=== PATIENT | male | born 1985 | race Caucasian/White ===

== ENCOUNTER 2017-02-22 21:19 | Emergency (ER) | payer BC ==
[~2017-02-22] VITALS: Ht 172.7 cm; Wt 139.7 kg
[2017-02-22 21:47] VITALS: BP 144/73
[2017-02-22 21:54] LABS: BASO # 0.1 x10^3/uL (0.0-0.2); BASO % 1 % (0-3); EOS % 1 % (0-3); HEMATOCRIT 40.1 % (39.0-53.0); HEMOGLOBIN 13.3 g/dL (13.0-17.5); LYMPH # 2.5 x10^3/uL (1.0-4.8); LYMPH % 16 % (24-48); MEAN CORPUSCULAR HEMOGLOBIN 29 pg (25-35); MEAN CORPUSCULAR HGB CONC 33 g/dL (31-37); MEAN CORPUSCULAR VOLUME 86 fL (79-100); MONO % 8 % (0-9); NEUT % 75 % (31-73); PLATELET COUNT 310 x10^3/uL (140-400); RED BLOOD COUNT 4.64 x10^6/uL (4.30-5.70); RED CELL DISTRIBUTION WIDTH 14.3 % (11.5-14.5); WHITE BLOOD COUNT 15.9 x10^3/uL (4.0-11.0)
[2017-02-22] MEDS ORDERED: ASPIRIN CHEWABLE 81 MG TABLET. PO ONE (22:00)
[2017-02-22 22:08] LABS: CALCIUM 9.5 mg/dL (8.5-10.1); GFR 87.2; POTASSIUM 3.7 mmol/L (3.5-5.1)
--- NOTE | 2017-02-22 22:45 | PHYS DOC ---
Past Medical History Past Medical History: GERD Past Surgical History: Other Additional Past Surgical Histo: L knee scope Alcohol Use: Occasionally Drug Use: None Adult General Chief Complaint Chief Complaint: CHEST PAIN HPI HPI Patient is a 31 year old m who presents with chest pain since 0300 this am. the pain radiates to the back. it is a sharp shooting pain. no alleviating factors. no hx of dm. Hx of htn and is quite hypertensive here. He denies ever smoking. he denies cough fevers or chills. ROS neg for abd pain, soa, n/v, fevers or chills. All other review of systems is negative unless otherwise noted in history of present illness. ED course: 31 yo F presenting to the ED today with chest pain. Pt was hypertensive here in the ED but without evidence of end organ dysfunction. Chest xray concerning for possible PNA. labs showed leukocytosis. neg trop. Patient's hypertension improved without any intervention. 140s on reexamination. Pt was given ASA in the ED. ekg unremarkable. pt d/melchor home on azithro to f/u with pcp in 2-3 days. The patient was then discharged home in stable condition to follow up with their primary care physician over the next 2- 3 days. They were to return if their symptoms worsened or if they were concerned for any reason. [id number] discharge instructions and return precautions were given. Patient's questions were answered to their satisfaction. Patient is comfortable plan. Review of Systems Review of Systems SEE ABOVE. Current Medications Current Medications Current Medications Medications (Trade) Dose Ordered Sig/[place] Start Time Stop Time Status Last Admin Dose Admin Aspirin (Children'S Aspirin) 324 mg 1X ONCE 02/22/17 22:00 02/22/17 22:22 DC 02/22/17 21:49 324 MG Allergies Allergies Allergies Coded Allergies Type Severity Reaction Last Updated Verified acetaminophen Allergy Mild nausea 02/22/17 Yes oxycodone Allergy Mild nausea 02/22/17 Yes Physical Exam Physical Exam SEE ABOVE Constitutional: Well developed, well nourished, no acute distress, non-toxic appearance. [] HENT: Normocephalic, atraumatic, bilateral external ears normal, oropharynx moist, no oral exudates, nose normal. [] Eyes: PERRLA, EOMI, conjunctiva normal, no discharge. [] Neck: Normal range of motion, no tenderness, supple, no stridor. [] Cardiovascular:Heart rate regular rhythm, no murmur [] Lungs & Thorax: Bilateral breath sounds clear to auscultation [] Abdomen: Bowel sounds normal, soft, no tenderness, no masses, no pulsatile masses. [] Skin: Warm, dry, no erythema, no rash. [] Back: No tenderness, no CVA tenderness. [] Extremities: No tenderness, no cyanosis, no clubbing, ROM intact, no edema. [] Neurologic: Alert and oriented X 3, normal motor function, normal sensory function, no focal deficits noted. [] Psychologic: Affect normal, judgement normal, mood normal. [] Current Patient Data Vital Signs Vital Signs Date Time Temp Pulse Resp B/P (MAP) Pulse Ox O2 Delivery O2 Flow Rate FiO2 02/22/17 21:47 62 20 144/73 (96) 99 Room Air 02/22/17 21:20 98.3 98.3 Lab Values Laboratory Tests Test 02/22/17 21:30 White Blood Count 15.9 x10^3/uL (4.0-11.0) H Red Blood Count 4.64 x10^6/uL (4.30-5.70) Hemoglobin 13.3 g/dL (13.0-17.5) Hematocrit 40.1 % (39.0-53.0) Mean Corpuscular Volume 86 fL (79-100) Mean Corpuscular Hemoglobin 29 pg (25-35) Mean Corpuscular Hemoglobin Concent 33 g/dL (31-37) Red Cell Distribution Width 14.3 % (11.5-14.5) Platelet Count 310 x10^3/uL (140-400) Neutrophils (%) (Auto) 75 % (31-73) H Lymphocytes (%) (Auto) 16 % (24-48) L Monocytes (%) (Auto) 8 % (0-9) Eosinophils (%) (Auto) 1 % (0-3) Basophils (%) (Auto) 1 % (0-3) Neutrophils # (Auto) 11.8 x10^3uL (1.8-7.7) H Lymphocytes # (Auto) 2.5 x10^3/uL (1.0-4.8) Monocytes # (Auto) 1.3 x10^3/uL (0.0-1.1) H Eosinophils # (Auto) 0.1 x10^3/uL (0.0-0.7) Basophils # (Auto) 0.1 x10^3/uL (0.0-0.2) Sodium Level 140 mmol/L (136-145) Potassium Level 3.7 mmol/L (3.5-5.1) Chloride Level 103 mmol/L (98-107) Carbon Dioxide Level 28 mmol/L (21-32) Anion Gap 9 (6-14) Blood Urea Nitrogen 10 mg/dL (8-26) Creatinine 1.0 mg/dL (0.7-1.3) Estimated GFR (Cockcroft-Gault) 87.2 Glucose Level 125 mg/dL (70-99) H Calcium Level 9.5 mg/dL (8.5-10.1) Troponin I Quantitative < 0.017 ng/mL (0.000-0.055) Laboratory Tests 02/22/17 21:30 Laboratory Tests 02/22/17 21:30 EKG EKG [] Radiology/Procedures Radiology/Procedures [] Course & Med Decision Making Course & Med Decision Making Pertinent Labs and Imaging studies reviewed. (See chart for details) [] Dragon Disclaimer Dragon Disclaimer This electronic medical record was generated, in whole or in part, using a voice recognition dictation system. Departure Departure Impression: Primary Impression: Chest pain Disposition: 01 HOME, SELF-CARE Condition: STABLE Referrals: NO PCP (PCP) SPARKLE RODRIGUEZ MD Patient Instructions: Chest Pain (Nonspecific) Scripts Hydrocodone Bit/Acetaminophen (HYDROCODONE-APAP 5-325 ) 1 Each Tablet 1 TAB PO PRN Q6HRS Y for PAIN, #8 TAB 0 Refills Be careful as this medication may cause you to be drowsy or tired. Do not drive on this medication. Prov: VAISHALI MCELROY MD 02/22/17 Azithromycin (AZITHROMYCIN TABLET) 250 Mg Tablet 1 PKG PO UD, #6 TAB Prov: VAISHALI MCELROY MD 02/22/17 VAISHALI MCELROY MD Feb 22, 2017 22:45
[2017-02-22] MEDS ORDERED: AZIT250T6 PO (22:58)
[2017-02-22] MEDS ORDERED: HYDR-2758 PO (23:51)
--- NOTE | 2017-02-23 06:11 | EKG ---
[facility] [address] [place] [address] Test Date: 2017-02-22 Test Time: 21:27:30 Pat Name: FRANKIE CAGLE Department: Room: Gender: M [employer]: : 1985 Requested By: VAISHALI MCELROY Order Number: [id number] Reading MD: Measurements Intervals [place] Rate: 61 P: 36 AR: 132 QRS: 27 QRSD: 100 T: 8 QT: 442 QTc: 446 Interpretive Statements SINUS RHYTHM QRS(T) CONTOUR ABNORMALITY CONSIDER ANTEROSEPTAL MYOCARDIAL DAMAGE CONSIDER INFERIOR MYOCARDIAL DAMAGE RI6.01 Unconfirmed report No previous ECG available for comparison
--- NOTE | 2017-02-23 08:21 | RAD ---
AP and lateral Views of the Chest 02/22/2017 11:24 PM Indication: chest pain Comparison: None Findings: Low lung volumes are noted. This augments the cardiomediastinal silhouette and pulmonary vasculature. Allowing for this no focal consolidation or infiltrate is seen. No pneumothorax or pleural effusion is identified. The bony thorax is intact. Impression: Low lung volumes. No other acute cardiopulmonary process is identified
== END 2017-02-22 23:58 | disposition home or self-care (01) ==
LOC: ER 21:19
DX: R07.89 Other chest pain (principal); I10 Essential (primary) hypertension; K21.9 Gastro-esophageal reflux disease without esophagitis; Z79.82 Long term (current) use of aspirin; Z88.6 Allergy status to analgesic agent; Z88.5 Allergy status to narcotic agent
CPT/HCPCS: 36415; 71020; 80048; 84484; 85027; 93005; 99285-25

== ENCOUNTER → 2018-01-29 | Outpatient (CLI) | payer BC ==
[2018-01-29] MEDS: GADOBUTROL 10 MMOL/10 ML VIAL IV (15:13)
== END | disposition home or self-care (01) ==
LOC: KCIC MRI 14:00
DX: G43.909 Migraine, unspecified, not intractable, without status migrainosus (principal)
CPT/HCPCS: 70553; A9585